=== PATIENT | female | born 1990 | race Caucasian/White ===

== ENCOUNTER 2016-09-19 23:07 | Emergency (ER) | payer OTHER ==
[~2016-09-19] VITALS: Ht 152.4 cm; Wt 61.5 kg
[~2016-09-19 23:07] MED LIST: PREN1TAB80 PO
[2016-09-19] MEDS ORDERED: IBUPROFEN 600 MG TABLET PO ONE (23:45)
[2016-09-19] MEDS ORDERED: CEPHALEXIN MONOHYDRATE 500 MG CAPSULE PO ONE (23:45)
[2016-09-20] MEDS ORDERED: SULFAMETHOX/TRIMETH DS 800-160 MG/TABLET PO ONE
[2016-09-20 00:17] VITALS: BP 122/78
== END 2016-09-20 00:21 | disposition home or self-care (01) ==
LOC: EMS 23:08
DX: L03.032 Cellulitis of left toe (principal)
CPT/HCPCS: 99284

== ENCOUNTER 2016-11-03 17:29 | Emergency (ER) | payer OTHER ==
[~2016-11-03] VITALS: Ht 152.4 cm; Wt 61.0 kg
[2016-11-03 17:30] VITALS: BP 114/68
[2016-11-03] MEDS ORDERED: CEPHALEXIN MONOHYDRATE 500 MG CAPSULE PO ONE (18:45)
[2016-11-03] MEDS ORDERED: ACETAMINOPHEN 325 MG TABLET PO ONE (18:45)
== END 2016-11-03 19:09 | disposition home or self-care (01) ==
LOC: EMS 17:30
DX: L03.032 Cellulitis of left toe (principal); L03.031 Cellulitis of right toe
CPT/HCPCS: 99283

== ENCOUNTER 2018-07-12 18:51 | Emergency (ER) | payer OTHER ==
[~2018-07-12] VITALS: Ht 157.5 cm; Wt 55.9 kg
[2018-07-12 18:54] VITALS: BP 109/77
== END 2018-07-12 21:52 | disposition home or self-care (01) ==
LOC: EMS 18:52
DX: H69.81 Other specified disorders of Eustachian tube, right ear (principal)